=== PATIENT | male | born 1995 | race Caucasian/White ===

== ENCOUNTER → 2021-02-08 | Outpatient (CLI) | payer OTHER ==
--- NOTE | 2021-02-08 15:28 | US ---
EXAMINATION TYPE: US scrotum with doppler. Grayscale and color Doppler Duplex imaging performed of issa lugo scrotum. DATE OF EXAM: 02/08/2021 COMPARISON: NONE CLINICAL HISTORY: N50.819 TESTICULAR PAIN. Patient felt lump one week ago right testicle. EXAM MEASUREMENTS: TESTICLES: Right Testicle: 4.8 x 3.7 x 2.8 cm Left Testicle: 4.7 x 3.7 x 2.6 cm EPIDIDYMIS HEAD: Right Epididymis: 2.2 x 1.7 x 1.8 cm Left Epididymis: 1.1 x 1.2 x 0.7 cm cm Doppler performed to assess for testicular vascularity; good bilateral color flow and waveforms are s een. There is no evidence of testicular torsion. Presence of hydroceles: No Presence of varicoceles: No right epididymal cyst with internal echos = 1.8 x 1.7 x 1.6 cm IMPRESSION: 1. Right epididymal head cyst or spermatocele with mild complexity measuring 1.8 cm. 2. No significant hydrocele or varicocele. No testicular torsion, orchitis or epididymitis..
== END | disposition home or self-care (01) ==
LOC: RADUSWWP 13:58
PROVIDERS: ATTEND Internal Medicine
DX: N50.819 Testicular pain, unspecified (principal)
CPT/HCPCS: 76870; 93975